=== PATIENT | male | born 1965 | race Caucasian/White ===

== ENCOUNTER → 2025-03-28 16:44 | Outpatient (REF) | payer BC, SELFPAY | LOC: RAD 16:44 | PROVIDERS: ATTENDING PHYSICIAN Student in an Organized Health Care Education/Training Program; FAMILY PHYSICIAN Nurse Practitioner Family | DX: R10.32 Left lower quadrant pain (principal); K57.92 Diverticulitis of intestine, part unspecified, without perforation or abscess without bleeding | CPT/HCPCS: 74177; Q9967 ==